=== PATIENT | male | born 1985 | race Caucasian/White ===

== ENCOUNTER 2022-06-11 18:08 | Emergency (ER) | payer BC ==
[2022-06-11] MEDS ORDERED: NA CHLORIDE 0.9% 1,000 ML ONE (18:33)
[2022-06-11] MEDS ORDERED: HYDROMORPHONE HCL 1 MG/ML INJ ONE (18:33)
[2022-06-11] MEDS ORDERED: ONDANSETRON 4 MG/2 ML VIAL ONE (18:33)
[2022-06-11 18:54] LABS: Absolute Lymphocytes (CBC) 1.9 K/uL (0.7-4.9); Hematocrit 44.4 % (39.6-49.0); Lymphocytes % 17.3 % (15.3-44.8); MCV 80.9 fL (80-100); MPV 8.4 fL (7.6-11.3); RBC Red Blood Cell Count 5.48 M/uL (4.33-5.43)
[2022-06-11 18:58] LABS: Urine Blood 1+ (Negative); Urine Glucose Negative (Negative); Urine Protein 1+ (Negative); Urine pH 7.5 (5.0-7.0)
--- NOTE | 2022-06-11 19:04 | RAD REPORT ---
EXAM DESCRIPTION: CT - Stone Protocol - 06/11/2022 6:56 pm CLINICAL HISTORY: Flank pain. Flank pain, kidney stone suspected COMPARISON: No comparisons TECHNIQUE: Axial images were obtained without oral or IV contrast. Lack of contrast limits solid org an and vascular assessment. The [id number] spans the entirety of the system partially obscuring uppermost abdomen and lung bases. Coronal reformatted images were obtained and reviewed. All CT scans are performed using dose optimization technique as appropriate and may include automated exposure control or mA/KV adjustment according to patient size. FINDINGS: The lower lung barfield are clear. Imaged portions of the liver and spleen show no suspicious findings on non-contrast imaging. The panc reas and adrenal glands are normal. No pathologic lymphadenopathy in the abdomen or pelvis. 1 mm calculus is present at the right UVJ with slight right sided hydronephrosis. Punctate 1 mm calcu walter superior calyx left kidney without hydronephrosis. No bowel obstruction, free air, free fluid or abscess. Normal appendix noted. No significant bony abnormality. IMPRESSION: 1 mm calculus right UVJ slight right-sided hydronephrosis. Punctate stone left kidney.
[2022-06-11 19:09] LABS: Albumin 4.2 g/dL (3.4-5.0); Bilirubin Total 0.4 mg/dL (0.2-1.0); Potassium 4.5 mmol/L (3.5-5.1); Protein, Total 7.8 g/dL (6.4-8.2)
[2022-06-11 19:13] LABS: Urine Bacteria NONE SEEN /HPF (NONE SEEN)
[2022-06-11] MEDS ORDERED: MAGNESIUM SULFATE 1 gm IVPB 1 GM/100 ML BAG IV ONE (19:30)
[2022-06-11] MEDS ORDERED: NA CHLORIDE 0.9% 50 ML ONE (19:30)
[2022-06-11] MEDS ORDERED: TAMSULOSIN 0.4 MG SR CAP ONE (19:30)
[2022-06-11] MEDS ORDERED: CEFTRIAXONE 1000 MG/VIAL ONE (19:30)
--- NOTE | 2022-06-11 20:01 | ER ---
Nurse's Notes [facility] Name: Hernesto Griggs Age: 37 yrs Sex: Male : 1985 Arrival Date: 06/11/2022 Time: 18:15 Bed 2 Private MD: Diagnosis: Calculus of ureter-right Presentation: 06/11 18:15 Chief complaint: EMS states: Right flank pain radiating to RLQ and groin x 2 days, hx jl7 of kidney stones. Coronavirus screen: At this time, the client does not indicate any symptoms associated with coronavirus-19. Ebola Screen: No symptoms or risks identified at this time. Initial Sepsis Screen: Does the patient meet any 2 criteria? No. Patient's initial sepsis screen is negative. Does the patient have a suspected source of infection? No. Patient's initial sepsis screen is negative. Risk Assessment: Do you want to hurt yourself or someone else? Patient reports no desire to harm self or others. Onset of symptoms was June 09, 2022. Care prior to arrival: Medication(s) given: 50 mcg Fentanyl IVP IV initiated. 18:15 Method Of Arrival: EMS: [facility] jl7 18:15 Acuity: MARVIN 3 jl7 Triage Assessment: 18:17 General: Appears in no apparent distress. uncomfortable, Behavior is cooperative, jl7 appropriate for age, anxious. Pain: Complains of pain in posterior aspect of right lateral abdomen and right lower quadrant. Neuro: Level of Consciousness is awake, alert, obeys commands, Oriented to person, place, time, situation. Cardiovascular: Patient's skin is warm and dry. Respiratory: Airway is patent Respiratory effort is even, unlabored, Respiratory pattern is regular, symmetrical. GI: Reports nausea, vomiting. : Reports pain with urination. Derm: Skin is pink, warm \T\ dry. Historical: - Allergies: 18:17 PENICILLINS; jl7 - Home Meds: 18:17 None [Active]; jl7 - PMHx: 18:17 None; jl7 - PSHx: 18:17 None; jl7 - Immunization history:: Client reports having NOT received the Covid vaccine. - Social history:: Smoking status: Patient denies any tobacco usage or history of. Screenin:15 Abuse screen: Denies threats or abuse. Denies injuries from another. Nutritional jl7 screening: No deficits noted. Tuberculosis screening: No symptoms or risk factors identified. Fall Risk IV access (20 points). Assessment: 18:15 General: See triage. jl7 Vital Signs: 18:15 BP 143 / 104; Pulse 57; Resp 17; Temp 97.6; Pulse Ox 97% on R/A; Weight 95.25 kg; jl7 Height 5 ft. 11 in. (180.34 cm); Pain 5/10; 18:15 Body Mass Index 29.29 (95.25 kg, 180.34 cm) jl7 ED Course: 18:15 Patient arrived in ED. jl7 18:15 Patient has correct armband on for positive identification. Bed in low position. Call jl7 light in reach. Side rails up X2. monitor tech on. Pulse ox on. 18:17 Triage completed. jl7 18:17 Arm band placed on right wrist. jl7 18:19 Nik Alonso PA is PHCP. cp 18:19 Andres Chao MD is Attending Physician. cp 18:40 Initial lab(s) drawn, by mt, sent to lab. Maintain EMS IV. Dressing intact. Good blood jl7 return noted. Site clean \T\ dry. Gauge \T\ site: 20 left forearm. 18:40 Urine collected: clean catch specimen, clear. jl7 18:44 Marcia Barger RN is Primary Nurse. jl7 18:58 CT Stone Protocol In Process Unspecified. EDMS 19:11 Primary Nurse role handed off by Marcia Barger RN kj1 19:19 Dominik Guzman RN is Primary Nurse. as6 19:59 Arvind Parker MD is Referral Physician. cp 21:08 No provider procedures requiring assistance completed. IV discontinued, intact, as6 bleeding controlled, No redness/swelling at site. Pressure dressing applied. Administered Medications: 18:40 Drug: NS 0.9% 1000 ml Route: IV; Rate: 1 bolus; Site: left forearm; jl7 21:08 Follow up: Response: No adverse reaction; IV Status: Infusion continued; IV Intake: as6 1000ml 18:40 Drug: Zofran (Ondansetron) 4 mg Route: IVP; Site: left forearm; jl7 21:08 Follow up: Response: No adverse reaction as6 18:40 Drug: Dilaudid (HYDROmorphone) 1 mg Route: IVP; Site: left forearm; jl7 21:08 Follow up: Response: No adverse reaction as6 19:25 Drug: Rocephin (cefTRIAXone) 1 grams Route: IV; Rate: calculated rate; Site: left hand; aa9 20:26 Follow up: Response: No adverse reaction; IV Status: Completed infusion; IV Intake: [id number] 19:44 Drug: Flomax (tamsulosin) 0.4 mg Route: PO; aa9 20:26 Follow up: Response: No adverse reaction aa9 20:23 Drug: Ketorolac 15 mg Route: IVP; Site: left hand; aa9 20:26 Follow up: Response: No adverse reaction aa9 20:24 Drug: Magnesium Sulfate 1 grams Route: IVPB; Infused Over: 1 hrs; Site: left hand; aa9 21:07 Follow up: Response: No adverse reaction; IV Status: Completed infusion; IV Intake: as6 100ml Medication: 18:15 VIS not applicable for this client. jl7 Intake: 20:26 IV: 50ml; Total: 50ml. aa9 21:07 IV: 100ml; Total: 150ml. as6 21:08 IV: 1000ml; Total: 1150ml. as6 Outcome: 20:00 Discharge ordered by . cp 21:11 Discharged to home ambulatory, with family. aa9 21:11 Condition: stable 21:11 Discharge instructions given to patient, Instructed on discharge instructions, follow up and referral plans. medication usage, Demonstrated understanding of instructions, follow-up care, medications, Prescriptions given X 3. 21:12 Patient left the ED. aa9 Signatures: Dispatcher [employer] EDMS Nik Alonso PA PA cp Leal, Jahala, RN RN jl7 Judy Olivier kj1 Dominik Guzman RN RN as6 Ksenia Ceja RN RN aa9
--- NOTE | 2022-06-11 20:01 | EDPHYS ---
Physician Documentation [facility] Name: Hernesto Griggs Age: 37 yrs Sex: Male : 1985 Arrival Date: 06/11/2022 Time: 18:15 Bed 2 Private MD: ED Physician Andres Chao HPI: 06/11 18:30 This 37 yrs old Male presents to ER via EMS with complaints of Abdominal Pain. cp 18:30 The patient presents with abdominal pain right flank. Onset: The symptoms/episode cp began/occurred yesterday, and became worse today. The symptoms radiate to right back. Associated signs and symptoms: Pertinent negatives: anorexia, chest pain, constipation, diarrhea, fever, testicular pain, vomiting. The symptoms are described as constant. Severity of pain: in the emergency department the pain is unchanged despite home interventions. Historical: - Allergies: 18:17 PENICILLINS; jl7 - Home Meds: 18:17 None [Active]; jl7 - PMHx: 18:17 None; jl7 - PSHx: 18:17 None; jl7 - Immunization history:: Client reports having NOT received the Covid vaccine. - Social history:: Smoking status: Patient denies any tobacco usage or history of. ROS: 18:35 Constitutional: Negative for body aches, chills, fever, poor PO intake. cp 18:35 Eyes: Negative for injury, pain, redness, and discharge. cp 18:35 Cardiovascular: Negative for chest pain, palpitations. 18:35 Respiratory: Negative for cough, shortness of breath, wheezing. 18:35 Abdomen/GI: Positive for abdominal pain, nausea, Negative for vomiting, diarrhea, constipation. 18:35 Back: Positive for flank pain, on the right, Negative for injury or acute deformity. 18:35 Neuro: Negative for altered mental status, dizziness, headache, weakness. 18:35 All other systems are negative. Exam: 18:40 Constitutional: The patient appears in no acute distress, alert, awake, non-toxic, well cp developed, well nourished, uncomfortable. 18:40 Head/Face: Normocephalic, atraumatic. cp 18:40 Eyes: Periorbital structures: appear normal, Conjunctiva: normal, no exudate, no injection, Sclera: no appreciated abnormality, Lids and lashes: appear normal, bilaterally. 18:40 ENT: External ear(s): are unremarkable, Nose: is normal, Mouth: Lips: moist, Oral mucosa: pink and intact, moist, Posterior pharynx: Airway: no evidence of obstruction, patent. 18:40 Neck: ROM/movement: is normal, is supple, without pain, no range of motions limitations. 18:40 Chest/axilla: Inspection: normal, Palpation: is normal, no crepitus, no tenderness. 18:40 Cardiovascular: Rate: bradycardic, Rhythm: regular. 18:40 Respiratory: the patient does not display signs of respiratory distress, Respirations: normal, no use of accessory muscles, no retractions, labored breathing, is not present, Breath sounds: are clear throughout, no decreased breath sounds, no stridor, no wheezing. 18:40 Abdomen/GI: Inspection: abdomen appears normal, Bowel sounds: active, all quadrants, Palpation: soft, in all quadrants, moderate abdominal tenderness, in the anterior aspect of right lateral abdomen and posterior aspect of right lateral abdomen, rebound tenderness, is not appreciated, involuntary guarding, is not appreciated. 18:40 Skin: cellulitis, is not appreciated, no rash present. Vital Signs: 18:15 BP 143 / 104; Pulse 57; Resp 17; Temp 97.6; Pulse Ox 97% on R/A; Weight 95.25 kg; jl7 Height 5 ft. 11 in. (180.34 cm); Pain 5/10; 18:15 Body Mass Index 29.29 (95.25 kg, 180.34 cm) jl7 MDM: 18:21 Patient medically screened. 20:00 Data reviewed: vital signs, nurses notes, lab test result(s), radiologic studies, CT cp scan. 20:00 Differential diagnosis: appendicitis, cholecystitis, Cholelithiasis, Pyelonephritis, cp Testicular Torsion, Ureterolithiasis, urinary tract infection. Counseling: I had a detailed discussion with the patient and/or guardian regarding: the historical points, exam findings, and any diagnostic results supporting the discharge/admit diagnosis, lab results, radiology results, to return to the emergency department if symptoms worsen or persist or if there are any questions or concerns that arise at home. Response to treatment: the patient's symptoms have markedly improved after treatment, and as a result, I will discharge patient. 06/11 18:22 Order name: CBC with Diff; Complete Time: 19:07 cp / 19:09 Interpretation: Normal except: WBC 11.3; RBC 5.48; MCH 26.8; JENNIFER% 74.4; NEUT A 8.4. cp / 18:22 Order name: CMP; Complete Time: 19:19 cp / 19:19 Interpretation: Normal except: CL 109; GLUC 115; AST 13; CA 10.2; GLOB 3.6. cp / 18:22 Order name: Lipase; Complete Time: 19:19 cp 06/11 19:19 Interpretation: Reviewed. / 18:22 Order name: Urine Microscopic Only; Complete Time: 19:19 cp / 19:19 Interpretation: Normal except: URBC 5-10. / 18:22 Order name: CT Stone Protocol; Complete Time: 19:07 cp / 19:09 Interpretation: Report reviewed. 06/11 18:58 Order name: Urine Dipstick-Ancillary; Complete Time: 19:07 EDMS 06/11 19:09 Interpretation: Normal except: UBLD 1+; UPH 7.5; UPROT 1+. / 18:22 Order name: IV Saline Lock; Complete Time: 18:44 cp / 18:22 Order name: Labs collected and sent; Complete Time: 18:44 cp 06/11 18:22 Order name: Urine Dipstick-Ancillary (obtain specimen); Complete Time: 19:07 cp / 19:49 Order name: PO challenge; Complete Time: 19:57 cp Administered Medications: 18:40 Drug: NS 0.9% 1000 ml Route: IV; Rate: 1 bolus; Site: left forearm; jl7 21:08 Follow up: Response: No adverse reaction; IV Status: Infusion continued; IV Intake: as6 1000ml 18:40 Drug: Zofran (Ondansetron) 4 mg Route: IVP; Site: left forearm; jl7 21:08 Follow up: Response: No adverse reaction as6 18:40 Drug: Dilaudid (HYDROmorphone) 1 mg Route: IVP; Site: left forearm; jl7 21:08 Follow up: Response: No adverse reaction as6 19:25 Drug: Rocephin (cefTRIAXone) 1 grams Route: IV; Rate: calculated rate; Site: left hand; aa9 20:26 Follow up: Response: No adverse reaction; IV Status: Completed infusion; IV Intake: [id number] 19:44 Drug: Flomax (tamsulosin) 0.4 mg Route: PO; aa9 20:26 Follow up: Response: No adverse reaction aa9 20:23 Drug: Ketorolac 15 mg Route: IVP; Site: left hand; aa9 20:26 Follow up: Response: No adverse reaction aa9 20:24 Drug: Magnesium Sulfate 1 grams Route: IVPB; Infused Over: 1 hrs; Site: left hand; aa9 21:07 Follow up: Response: No adverse reaction; IV Status: Completed infusion; IV Intake: as6 100ml Disposition Summary: 06/11/22 20:00 Discharge Ordered Location: Home cp Problem: new cp Symptoms: have improved cp Condition: Stable cp Diagnosis - Calculus of ureter - right cp Followup: cp - With: Arvind Parker MD - When: 1 week - Reason: pain continues Discharge Instructions: - Discharge Summary Sheet cp - Kidney Stones cp Forms: - Medication Reconciliation Form cp - Thank You Letter cp - Antibiotic Education cp - Prescription Opioid Use cp Prescriptions: - Flomax 0.4 mg Oral capsule - take 1 capsule by ORAL route once daily 1/2 hour following the same meal each cp day; 5 capsule; Refills: 0, Product Selection Permitted - Zofran 4 mg Oral Tablet - take 1 tablet by ORAL route every 12 hours As needed; 20 tablet; Refills: 0, cp Product Selection Permitted - Tramadol 50 mg Oral Tablet - take 1 tablet by ORAL route every 8 hours as needed; 12 tablet; Refills: 0, cp Product Selection Permitted Addendum: 06/17/2022 21:53 Co-signature as Attending Physician, Andres black Signatures: Dispatcher [employer] Andres Willis MD MD rn Page, Corey, PA PA cp Marcia Barger RN RN jl7 Ksenia Ceja RN RN aa9 Dominik Guzman RN as6
[2022-06-11] MEDS ORDERED: KETOROLAC 30 MG/ML INJ ONE (20:23)
[2022-06-11 21:25] VITALS: BP 143/104; TEMP 97.6; O2SAT 97
== END 2022-06-11 21:12 | disposition home or self-care (01) ==
LOC: ER 18:08
DX: N20.1 Calculus of ureter (principal); Z88.0 Allergy status to penicillin
CPT/HCPCS: 85025; 36415; 83690; 80053; 76377; 74176; 99284; J3475; J1170; J7030; J2405; 81003; 81015